=== PATIENT | female | born 1990 | race Caucasian/White ===

== ENCOUNTER 2020-02-10 23:26 | Emergency (ER) | payer OTHER, SELFPAY ==
[~2020-02-10] VITALS: Ht 160 cm; Wt 60.6 kg
[2020-02-10] MEDS ORDERED: ORTH1TAB10 PO (23:37)
[2020-02-11] MEDS ORDERED: DOXY100C37 PO (01:22)
[2020-02-11 01:28] VITALS: BP 117/62
[2020-02-11] MEDS ORDERED: DOXYCYCLINE HYCLATE 100MG TABLET PO ONE (01:30)
== END 2020-02-11 01:30 | disposition home or self-care (01) ==
LOC: M ED 23:26
DX: L08.9 Local infection of the skin and subcutaneous tissue, unspecified (principal)

== ENCOUNTER → 2021-07-16 | Outpatient (CLI) | payer OTHER ==
[~2021-07-16] MED LIST: DOXY-443 PO; ONDA4TAB6 PO; ORTH1TAB10 PO
== END ==
LOC: M RAD 14:19
PROVIDERS: ATTEND Orthopaedic Surgery Sports Medicine
DX: M24.10 Other articular cartilage disorders, unspecified site (principal)

== ENCOUNTER 2021-09-14 20:56 | Emergency (ER) | payer OTHER ==
[~2021-09-14] VITALS: Ht 160 cm; Wt 64.8 kg
[~2021-09-14 20:56] MED LIST changes: -ONDA4TAB6 PO
[2021-09-14] MEDS ORDERED: NS 1,000 ML IV ONE (21:25)
[2021-09-14] MEDS ORDERED: ONDANSETRON 4MG/2ML VIAL IV ONE (21:25)
[2021-09-14 22:04] LABS: HCG, SERUM QUALITATIVE NEGATIVE (NEGATIVE)
[2021-09-14 22:06] LABS: ALBUMIN 3.3 GM/DL (3.2-5.2); ALT/SGPT 18 U/L (12-78); BILIRUBIN,DIRECT 0.1 MG/DL (0.0-0.2); BILIRUBIN,TOTAL 0.4 MG/DL (0.2-1.0); BLOOD UREA NITROGEN 12 MG/DL (7-18); CALCIUM LEVEL 8.3 MG/DL (8.5-10.1); CARBON DIOXIDE LEVEL 27 MEQ/L (21-32); CHLORIDE LEVEL 106 MEQ/L (98-107); CREATININE FOR GFR 0.71 MG/DL (0.55-1.30); GLOMERULAR FILTRATION RATE > 60.0 (>60); GLUCOSE, FASTING 91 MG/DL (70-100); LIPASE 63 U/L (73-393); POTASSIUM SERUM 3.6 MEQ/L (3.5-5.1); SODIUM LEVEL 141 MEQ/L (136-145); TOTAL PROTEIN 6.7 GM/DL (6.4-8.2)
[2021-09-14 22:38] LABS: BASO % 0.2 % (0.0-1.0); EOS # 0.1 10^3/uL (0.0-0.5); EOS % 0.9 % (0.0-3.0); HEMATOCRIT 41.3 % (36.0-47.0); LYMPH # 1.1 10^3/uL (1.5-5.0); LYMPH % 10.6 % (24.0-44.0); MEAN CORPUSCULAR HEMOGLOBIN 28.9 pg (27.0-33.0); MEAN CORPUSCULAR HGB CONC 33.9 g/dl (32.0-36.5); MEAN CORPUSCULAR VOLUME 85.2 fl (80.0-96.0); MONO # 0.6 10^3/uL (0.0-0.8); MONO % 5.4 % (2.0-8.0); NEUTROPHILS # 8.5 10^3/uL (1.5-8.5); NEUTROPHILS % 82.5 % (36.0-66.0); PLATELET COUNT, AUTOMATED 266 10^3/uL (150-450); RED BLOOD COUNT 4.85 10^6/uL (4.00-5.40); WHITE BLOOD COUNT 10.3 10^3/uL (4.0-10.0)
[2021-09-14] MEDS ORDERED: ONDA4TAB6 PO (23:01)
[2021-09-14] MEDS ORDERED: ONDANSETRON 4 MG ORAL DISINTEGRATING TAB PO ONE (23:05)
[2021-09-14] MEDS ORDERED: GI COCKTAIL 50ML BTL(HYOSCYAMINE/MAALOX/LIDOCAINE VISCOUS)(1:3:1) PO ONE (23:05)
[2021-09-14 23:40] VITALS: BP 131/77
== END 2021-09-14 23:40 | disposition home or self-care (01) ==
LOC: M ED 20:56
DX: K58.8 Other irritable bowel syndrome (principal); R11.0 Nausea
CPT/HCPCS: 80048; 80076; 83690; 84703; 85025; 96374; 99284; J2405; Q0162

== ENCOUNTER 2024-09-14 14:04 | Emergency (ER) | payer OTHER, SELFPAY ==
[~2024-09-14] VITALS: Ht 160 cm; Wt 77.0 kg
[~2024-09-14 14:04] MED LIST changes: +DOXY-441 PO; -DOXY-443 PO; +ONDA-282 PO
[2024-09-14 14:07] VITALS: TEMP 96.9
[2024-09-14 15:34] LABS: BASO % 0.1 % (0.0-1.0); EOS % 0.1 % (0.0-3.0); HEMATOCRIT 37.8 % (36.0-47.0); HEMOGLOBIN 13.2 g/dl (12.0-15.5); LYMPH # 0.5 10^3/uL (1.5-5.0); LYMPH % 5.8 % (24.0-44.0); MEAN CORPUSCULAR HEMOGLOBIN 30.4 pg (27.0-33.0); MEAN CORPUSCULAR HGB CONC 34.9 g/dl (32.0-36.5); MEAN CORPUSCULAR VOLUME 87.1 fl (80.0-96.0); MONO # 0.3 10^3/uL (0.0-0.8); NEUTROPHILS # 7.9 10^3/uL (1.5-8.5); NEUTROPHILS % 90.7 % (36.0-66.0); PLATELET COUNT, AUTOMATED 220 10^3/uL (150-450); RED BLOOD COUNT 4.34 10^6/uL (4.00-5.40); WHITE BLOOD COUNT 8.7 10^3/uL (4.0-10.0)
[2024-09-14 16:04] LABS: ALBUMIN 3.4 G/DL (3.2-5.2); BILIRUBIN,DIRECT 0.1 MG/DL (<0.4); BILIRUBIN,TOTAL 0.4 MG/DL (0.3-1.2); TOTAL PROTEIN 6.5 G/DL (5.7-8.2)
[2024-09-14] MEDS: MAALOX 30 ML SUSP *UDC PO ONE (16:08)
[2024-09-14] MEDS: DICYCLOMINE 10 MG CAP PO ONE (16:08)
[2024-09-14] MEDS: HYOSCYAMINE SULFATE 0.125 MG SUBL TABLET PO ONE (16:08)
[2024-09-14] MEDS: LIDOCAINE VISCOUS 2% SOLN 15ML UDC PO ONE (16:08)
[2024-09-14] MEDS ORDERED: DICY-61 PO (16:25)
[2024-09-14 16:44] VITALS: BP 110/96; O2SAT 96
== END 2024-09-14 16:45 | disposition home or self-care (01) ==
LOC: M ED 14:04
DX: K58.9 Irritable bowel syndrome, unspecified (principal); Z79.899 Other long term (current) drug therapy

== ENCOUNTER → 2025-02-26 | Outpatient (CLI) | payer BC ==
[~2025-02-26] MED LIST changes: +DICY-61 PO
== END ==
LOC: M RAD 13:23
PROVIDERS: ATTEND Nurse Practitioner Family
DX: E04.1 Nontoxic single thyroid nodule (principal)